=== PATIENT | female | born 1995 | race Two or more races ===

== ENCOUNTER 2021-06-28 17:59 | Emergency (ER) | payer SELFPAY ==
[~2021-06-28] VITALS: Ht 157.5 cm; Wt 127.5 kg
[~2021-06-28 17:59] MED LIST: NAPR-514 PO; OXYC1TAB15 PO
[2021-06-28] MEDS ORDERED: ONDANSETRON PF 4 MG/2 ML VIAL. IVP ONE (20:00)
[2021-06-28] MEDS ORDERED: fentaNYL PF VIAL 100 MCG/2 ML VIAL IVP ONE (20:00)
[2021-06-28] MEDS ORDERED: FAMOTIDINE 20 MG/2 ML VIAL IVP ONE (20:00)
[2021-06-28 20:01] LABS: BASO # 0.1 x10^3/uL (0.0-0.2); BASO % 0 % (0-3); EOS % 0 % (0-3); HEMOGLOBIN 12.9 g/dL (12.0-15.5); LYMPH # 1.9 x10^3/uL (1.0-4.8); LYMPH % 15 % (24-48); MEAN CORPUSCULAR HEMOGLOBIN 29 pg (25-35); MEAN CORPUSCULAR HGB CONC 34 g/dL (31-37); MEAN CORPUSCULAR VOLUME 84 fL (79-100); MONO # 0.7 x10^3/uL (0.0-1.1); MONO % 6 % (0-9); NEUT # 10.2 x10^3/uL (1.8-7.7); NEUT % 79 % (31-73); PLATELET COUNT 377 x10^3/uL (140-400); RED BLOOD COUNT 4.53 x10^6/uL (3.50-5.40); RED CELL DISTRIBUTION WIDTH 13.5 % (11.5-14.5)
[2021-06-28 20:10] LABS: CALCIUM 8.5 mg/dL (8.5-10.1); CREATININE 0.8 mg/dL (0.6-1.0); GFR 86.7; POTASSIUM 3.8 mmol/L (3.5-5.1)
[2021-06-28 20:15] LABS: ALBUMIN 3.5 g/dL (3.4-5.0); ALBUMIN/GLOBULIN RATIO 0.8 (1.0-1.7); TOTAL BILIRUBIN 0.3 mg/dL (0.2-1.0)
[2021-06-28 20:15] LABS: BILIRUBIN,URINE NEGATIVE (NEG); CLARITY,URINE CLEAR; COLOR,URINE YELLOW; NITRITE,URINE NEGATIVE (NEG); PROTEIN,URINE NEGATIVE (NEG-TRACE); UROBILINOGEN,URINE 0.2 mg/dL (0.2 mg/dL)
[2021-06-28 20:19] LABS: BACTERIA,URINE MODERATE /HPF (0-FEW); RBC,URINE OCC /HPF (0-2); WBC,URINE OCC /HPF (0-4)
[2021-06-28] MEDS ORDERED: IOHEXOL 300 MG/ML 100ML VIAL. IV ONE (20:30)
--- NOTE | 2021-06-28 20:47 | PHYS DOC ---
Past Medical History Past Medical History: No Pertinent History (MANAS RAYA DO) Past Surgical History: Appendectomy, Tubal ligation (JR SAENZ APRN) Smoking Status: Never Smoker Alcohol Use: None Drug Use: None (MANAS RAYA DO) General Adult EDM: Chief Complaint: ABDOMINAL PAIN HPI: HPI: Patient is a 26 year old female patient with history of appendectomy presenting today complaining of 10 out of 10 right lower quadrant abdominal pain radiating to the rest of the abdomen, symptoms began this morning. Patient describes the pain as sharp and constant. Denies anything specifically exacerbating or relieving the symptoms. She states she has had a tubal ligation and is not . (JR SAENZ APRN) Review of Systems: Review of Systems: Constitutional: Denies fever or chills. [] Eyes: Denies change in visual acuity. [] HENT: Denies nasal congestion or sore throat. [] Respiratory: Denies cough or shortness of breath. [] Cardiovascular: Denies chest pain or edema. [] GI: Reports right lower quadrant abdominal pain, denies nausea, vomiting, bloody stools or diarrhea. [] : Denies dysuria. [] Musculoskeletal: Denies back pain or joint pain. [] Integument: Denies rash. [] Neurologic: Denies headache, focal weakness or sensory changes. [] Endocrine: Denies polyuria or polydipsia. [] Psychiatric: Denies depression or anxiety. [] (JR SAENZ NETWORK ARCHITECT MANAGER) Heart Score: C/O Chest Pain: N/A Risk Factors: Risk Factors: DM, Current or recent (<one month) smoker, HTN, HLP, family history of CAD, obesity. Risk Scores: Score 0 - 3: 2.5% MACE over next 6 weeks - Discharge Home Score 4 - 6: 20.3% MACE over next 6 weeks - Admit for Clinical Observation Score 7 - 10: 72.7% MACE over next 6 weeks - Early Invasive Strategies (JR SAENZ NETWORK ARCHITECT MANAGER) Current Medications: Current Medications Medications (Trade) Dose Ordered Sig/Rajiv Start Time Stop Time Status Last Admin Dose Admin Famotidine (Pepcid Vial) 20 mg 1X ONCE 06/28/21 20:00 06/28/21 20:01 DC 06/28/21 20:24 20 MG Fentanyl Citrate (Fentanyl 2ml Vial) 50 mcg 1X ONCE 06/28/21 20:00 06/28/21 20:01 DC 06/28/21 20:24 50 MCG Iohexol (Omnipaque 300 Mg/ml) 75 ml 1X ONCE 06/28/21 20:30 06/28/21 20:31 DC 06/28/21 20:43 75 ML Ondansetron HCl (Zofran) 4 mg 1X ONCE 06/28/21 20:00 06/28/21 20:01 DC 06/28/21 20:24 4 MG (MUTUNGA,JR M NETWORK ARCHITECT MANAGER) Allergies: Allergies: Allergies Coded Allergies Type Severity Reaction Last Updated Verified No Known Drug Allergies 07/27/17 No (MUTUNGA,JR M NETWORK ARCHITECT MANAGER) Physical Exam: PE: Constitutional: Well developed, well nourished, no acute distress, non-toxic appearance. [] HENT: Normocephalic, atraumatic, bilateral external ears normal, oropharynx moist, no oral exudates, nose normal. [] Eyes: PERRLA, EOMI, conjunctiva normal, no discharge. [] Neck: Normal range of motion, no tenderness, supple, no stridor. [] Cardiovascular:Heart rate regular rhythm, no murmur [] Lungs & Thorax: Bilateral breath sounds clear to auscultation [] Abdomen: Rounded abdomen. Bowel sounds normal, soft, diffuse tenderness throughout the abdomen, point tenderness noted to the right upper quadrant with negative Delaney sign, point tenderness to the right lower quadrant with negative psoas sign, negative obturator sign, no guarding, no rebound tenderness, no masses, no pulsatile masses. [] Skin: Warm, dry, no erythema, no rash. [] Back: No tenderness, no CVA tenderness. [] Extremities: No tenderness, no cyanosis, no clubbing, ROM intact, no edema. [] Neurologic: Alert and oriented X 3, normal motor function, normal sensory function, no focal deficits noted. [] Psychologic: Affect normal, judgement normal, mood normal. [] (MUTUNGA,JR M NETWORK ARCHITECT MANAGER) Current Patient Data: Labs: Laboratory Tests Test 06/28/21 19:15 06/28/21 19:53 Urine Collection Type Unknown Urine Color Yellow Urine Clarity Clear Urine pH 6.0 (<5.0-8.0) Urine Specific [place] 1.025 (1.000-1.030) Urine Protein Negative mg/dL (NEG-TRACE) Urine Glucose (UA) Negative mg/dL (NEG) Urine Ketones (Stick) Negative mg/dL (NEG) Urine Blood Negative (NEG) Urine Nitrite Negative (NEG) Urine Bilirubin Negative (NEG) Urine Urobilinogen Dipstick 0.2 mg/dL (0.2 mg/dL) Urine Leukocyte Esterase Negative (NEG) Urine RBC Occ /HPF (0-2) Urine WBC Occ /HPF (0-4) Urine Squamous Epithelial Cells Mod /LPF Urine Bacteria Moderate /HPF (0-FEW) Urine Mucus Mod /LPF White Blood Count 13.0 x10^3/uL (4.0-11.0) H Red Blood Count 4.53 x10^6/uL (3.50-5.40) Hemoglobin 12.9 g/dL (12.0-15.5) Hematocrit 38.0 % (36.0-47.0) Mean Corpuscular Volume 84 fL (79-100) Mean Corpuscular Hemoglobin 29 pg (25-35) Mean Corpuscular Hemoglobin Concent 34 g/dL (31-37) Red Cell Distribution Width 13.5 % (11.5-14.5) Platelet Count 377 x10^3/uL (140-400) Neutrophils (%) (Auto) 79 % (31-73) H Lymphocytes (%) (Auto) 15 % (24-48) L Monocytes (%) (Auto) 6 % (0-9) Eosinophils (%) (Auto) 0 % (0-3) Basophils (%) (Auto) 0 % (0-3) Neutrophils # (Auto) 10.2 x10^3/uL (1.8-7.7) H Lymphocytes # (Auto) 1.9 x10^3/uL (1.0-4.8) Monocytes # (Auto) 0.7 x10^3/uL (0.0-1.1) Eosinophils # (Auto) 0.0 x10^3/uL (0.0-0.7) Basophils # (Auto) 0.1 x10^3/uL (0.0-0.2) Sodium Level 139 mmol/L (136-145) Potassium Level 3.8 mmol/L (3.5-5.1) Chloride Level 103 mmol/L (98-107) Carbon Dioxide Level 26 mmol/L (21-32) Anion Gap 10 (6-14) Blood Urea Nitrogen 9 mg/dL (7-20) Creatinine 0.8 mg/dL (0.6-1.0) Estimated GFR (Cockcroft-Gault) 86.7 BUN/Creatinine Ratio 11 (6-20) Glucose Level 99 mg/dL (70-99) Calcium Level 8.5 mg/dL (8.5-10.1) Total Bilirubin 0.3 mg/dL (0.2-1.0) Aspartate Amino Transferase (AST) 28 U/L (15-37) Alanine Aminotransferase (ALT) 43 U/L (14-59) Alkaline Phosphatase 125 U/L (46-116) H Total Protein 8.0 g/dL (6.4-8.2) Albumin 3.5 g/dL (3.4-5.0) Albumin/Globulin Ratio 0.8 (1.0-1.7) L Lipase 93 U/L (73-393) Laboratory Tests 06/28/21 19:53 Laboratory Tests 06/28/21 19:53 Vital Signs: Vital Signs Date Time Temp Pulse Resp B/P (MAP) Pulse Ox O2 Delivery O2 Flow Rate FiO2 06/28/21 20:24 20 100 Room Air 06/28/21 19:30 98.2 64 128/58 (81) 98.2 (JR SAENZ APRN) EKG: EKG: [] (JR SAENZ APRN) Radiology/Procedures: Radiology/Procedures: []PROCEDURE: CT ABD PELV W/ IV CONTRST ONLY EXAM: CT Abdomen and Pelvis with IV contrast CLINICAL HISTORY: Reason: abd pain / Spl. Instructions: omni 300 75ml / History: . COMPARISON: none TECHNIQUE: Helical CT of the abdomen and pelvis was performed following the administration of intravenous contrast. Axial, coronal and sagittal reformatted images were generated. PQRS compliance statement - One or more of the following individualized dose reduction techniques were utilized for this study: 1. Automated exposure control 2. Adjustment of the mA and/or kV according to patient size 3. Use of iterative reconstruction technique FINDINGS: Lower Chest: Bibasilar subsegmental atelectasis. No evidence of acute pulmonary process. Abdomen and Pelvis: Evaluation of the upper abdomen is degraded secondary to patient motion. The liver is normal in size and attenuation. Gallbladder is mildly decompressed with no evidence of acute inflammation. No biliary ductal dilation. Spleen and adjacent splenule are unremarkable. The adrenal glands and pancreas are unremarkable. Normal parenchymal enhancement of the kidneys. No nephrolithiasis or hydronephrosis. Stomach is unremarkable.No evidence of bowel obstruction or focal wall thickening. Appendix is not definitely visualized. There is a moderate amount of air and stool predominantly in the proximal colon. No free intra-abdominal air or free fluid. No pathologically enlarged abdominal or pelvic adenopathy. Vasculature is normal in course and caliber. Bladder is unremarkable. Normal uterus is present. No suspicious adnexal masses. Abdominal wall is unremarkable. Subcutaneous tissues are normal. There is no acute or suspicious osseous abnormalities. IMPRESSION: 1. No acute abnormality in the abdomen or pelvis. 2. Moderate predominantly proximal colonic stool burden suggestive of mild constipation. Electronically signed by: Megha Smart DO (06/28/2021 8:59 PM) [facility] DICTATED and SIGNED BY: MEGHA SMART DO DATE: 06/28/[id number] 0 (JR SAENZ NETWORK ARCHITECT MANAGER) Course & Med Decision Making: Course & Med Decision Making Pertinent Labs and Imaging studies reviewed. (See chart for details) This a 26-year-old female patient presenting to the ED today with right lower quadrant abdominal pain radiating to the rest of her abdomen, symptoms began today Negative urine hCG, UA negative for infection. CBC with a WBC of 13.0. CMP with no acute findings. Lipase is negative CT of the abdomen and pelvis negative for any acute findings, noted for constipation. Given mag citrate in the ED. Discharged with education on constipation prevention and management and when to come to the ED (JR SAENZ NETWORK ARCHITECT MANAGER) Dragon Disclaimer: Dragon Disclaimer: This electronic medical record was generated, in whole or in part, using a voice recognition dictation system. (JR SAENZ NETWORK ARCHITECT MANAGER) Departure Departure Impression: Primary Impression: Constipation Qualified Codes: K59.00 - Constipation, unspecified Disposition: HOME / SELF CARE / HOMELESS Condition: STABLE Referrals: NO PCP (PCP) Follow-up with your doctor in 1 week Patient Instructions: Constipation, Adult Additional Instructions: You were evaluated in the emergency room and noted to be constipated. Please increase your dietary fiber intake as well as water intake. Please get up and exercise more. Take the prescribed medications as ordered. Come back to the ED at any point symptoms worsen Scripts Magnesium Citrate (MAGNESIUM CITRATE) 296 Ml Solution 296 ML PO ONCE, #296 ML Prov: JR SAENZ APRN 06/28/21 Polyethylene Glycol 3350 (MIRALAX) 119 Gm Powder 17 GM PO DAILY for constipation, #527 GM 0 Refills dissolve in water Prov: JR SAENZ APRN 06/28/21 Attending Signature Attending Signature I have reviewed the PA/SOLAR INSTALLATION MANAGER's note and plan of care. I was available for consultation as needed during the patient's visit in the emergency department. I agree with the clinical impression, plan, and disposition. (MANAS RAYA DO) JR SAENZ APRN Jun 28, 2021 20:47 MANAS RAYA DO Jun 28, 2021 23:25
--- NOTE | 2021-06-28 21:02 | RAD ---
EXAM: CT Abdomen and Pelvis with IV contrast CLINICAL HISTORY: Reason: abd pain / Spl. Instructions: omni 300 75ml / History: . COMPARISON: none TECHNIQUE: Helical CT of the abdomen and pelvis was performed following the administration of intrave nous contrast. Axial, coronal and sagittal reformatted images were generated. PQRS compliance statement - One or more of the following individualized dose reduction techniques wer e utilized for this study: 1. Automated exposure control 2. Adjustment of the mA and/or kV according to patient size 3. Use of iterative reconstruction technique FINDINGS: Lower Chest: Bibasilar subsegmental atelectasis. No evidence of acute pulmonary process. Abdomen and Pelvis: Evaluation of the upper abdomen is degraded secondary to patient motion. The liver is normal in size and attenuation. Gallbladder is mildly decompressed with no evidence of a cute inflammation. No biliary ductal dilation. Spleen and adjacent splenule are unremarkable. The adr enal glands and pancreas are unremarkable. Normal parenchymal enhancement of the kidneys. No nephroli thiasis or hydronephrosis. Stomach is unremarkable.No evidence of bowel obstruction or focal wall thickening. Appendix is not de finitely visualized. There is a moderate amount of air and stool predominantly in the proximal colon. No free intra-abdominal air or free fluid. No pathologically enlarged abdominal or pelvic adenopathy . Vasculature is normal in course and caliber. Bladder is unremarkable. Normal uterus is present. No suspicious adnexal masses. Abdominal wall is un remarkable. Subcutaneous tissues are normal. There is no acute or suspicious osseous abnormalities. IMPRESSION: 1. No acute abnormality in the abdomen or pelvis. 2. Moderate predominantly proximal colonic stool burden suggestive of mild constipation. Electronically signed by: Ney Smart DO (06/28/2021 8:59 PM) [facility]
[2021-06-28] MEDS ORDERED: POLY119P4 PO (21:36)
[2021-06-28] MEDS ORDERED: MAGN296S68 PO (21:36)
[2021-06-28] MEDS ORDERED: BISACODYL 5 MG TABLET.DR. PO ONE (22:00)
[2021-06-28] MEDS ORDERED: MAGNESIUM CITRATE 296 ML SOLUTION. PO ONE (22:00)
[2021-06-28 22:03] VITALS: BP 123/65
== END 2021-06-28 22:11 | disposition home or self-care (01) ==
LOC: ER 17:59
DX: K59.00 Constipation, unspecified (principal); Z90.89 Acquired absence of other organs; Z98.51 Tubal ligation status
CPT/HCPCS: 36415; 74177; 80053; 81001; 81025; 83690; 85025; 87086; 96374; 96375; 99285; J2405; J3010; J3490; Q9967